=== PATIENT | female | born 1950 | race Caucasian/White ===

== ENCOUNTER → 2018-08-10 | Day surgery (SDC) | payer MEDICARE, BC ==
[2018-08-10] MEDS: Lactated Ringers 1,000 ML IV SCH (16:25)
[2018-08-10] MEDS: Meperidine PF 25 MG/ML Syringe IV ONE (16:40)
[2018-08-10] MEDS: Midazolam 1 MG/ML 2 ML SDV IV ONE (16:40)
[2018-08-10 17:26] VITALS: BP 130/59
--- NOTE | 2018-08-11 09:36 | OR ---
DATE OF OPERATION: 08/10/2018 PREOPERATIVE DIAGNOSIS: FOREIGN BODY, ESOPHAGUS. POSTOPERATIVE DIAGNOSIS: 1. FOREIGN BODY OF ESOPHAGUS, RESOLVED. 2. LARGE HIATAL HERNIA WITH GASTROESOPHAGEAL REFLUX DISEASE. 3. DUODENITIS. SURGEON: Fernie Linares MD PROCEDURE: DIAGNOSTIC AND THERAPEUTIC EGD WITH BIOPSIES X1, BAKARI. ANESTHESIA: Conscious sedation with 2 mg Versed and 25 mg Demerol with continuous O2 sat monitoring and nurse assist. Oxygen sats remained above 90% for the entire procedure. COMPLICATIONS: None. SPECIMEN: 1. Duodenal bulb biopsy x1. 2. BAKARI. FINDINGS: 1. Full-length EGD. 2. Retained food particle, distal esophagus. 3. Large hiatal hernia with spontaneous GERD. No significant esophagitis. 4. Duodenitis, duodenal bulb without ulceration. RECOMMENDATIONS: Patient is instructed to initiate proton pump therapy on a daily basis at this point. She needs to give some consideration to hiatal hernia repair given the chronicity of this problem and the size of the hernia itself. INDICATIONS: Patient's son works in our facility. She has a history of a prior food impaction in her esophagus. She called in noting that and we elected to proceed with a diagnostic and therapeutic EGD. DESCRIPTION OF PROCEDURE: The patient was prepped and draped, placed in the left lateral decubitus position. With head of the bed elevated, a lubricated Olympus gastroscope was inserted over a bit, advanced to cricopharyngeus area, and with patient swallow, easily intubated into the esophagus. We were able to proceed down through the esophagus without any difficulty. There may be a slightly smaller caliber esophagus, but for the most part, scope passed simply. At its most distal portion, the patient had a large food, vegetable matter noted to be spinach impacted in the distal esophagus. This was easily pushed through to the stomach without any problem. The Z-line was crisp around 34 cm. There was a large hiatal hernia present. There was no obvious esophagitis, stricturing, ulceration or Nuno's changes of the esophagus. Scope was advanced into the stomach through the pylorus into the second portion of the duodenum. This was benign. The duodenal bulb had some duodenitis. We will do a biopsy of that. The scope was brought back into the stomach and retroflexed. The upper fundus and cardia showed a large hernia but otherwise no gross abnormalities. Very difficult to see the upper fundus and cardia because patient still has food in her stomach. The distal portion of the fundus and antrum could be visualized and no gross abnormalities were seen. Biopsy was taken for BAKARI of the unaffected portion of the antrum. Air was then suctioned from the stomach and the scope were removed without complication. DALE/SHENG /[id number]
== END ==
LOC: CC.SDS 15:57
PROVIDERS: ATTEND Family Medicine
DX: T18.108A Unspecified foreign body in esophagus causing other injury, initial encounter (principal); K44.9 Diaphragmatic hernia without obstruction or gangrene; K21.9 Gastro-esophageal reflux disease without esophagitis; K29.80 Duodenitis without bleeding; E78.5 Hyperlipidemia, unspecified; I10 Essential (primary) hypertension; F17.210 Nicotine dependence, cigarettes, uncomplicated; J44.1 Chronic obstructive pulmonary disease with (acute) exacerbation; Z79.51 Long term (current) use of inhaled steroids; Z79.1 Long term (current) use of non-steroidal anti-inflammatories (NSAID); Z79.899 Other long term (current) drug therapy; Z88.6 Allergy status to analgesic agent; Z88.8 Allergy status to other drugs, medicaments and biological substances
CPT/HCPCS: 87081; J2175; J2250; J7120

== ENCOUNTER → 2018-12-11 | Day surgery (SDC) | payer MEDICARE, BC ==
[~2018-12-11] MED LIST: Lidocaine 1% 20 ML MDV ONE
[2018-12-11 10:27] VITALS: BP 155/76; PULSE 76
== END ==
LOC: CC.SDS 06:07
PROVIDERS: ATTEND Family Medicine
DX: I83.12 Varicose veins of left lower extremity with inflammation (principal); I83.812 Varicose veins of left lower extremity with pain
CPT/HCPCS: A4216

== ENCOUNTER → 2018-12-15 | Day surgery (SDC) | payer MEDICARE, BC ==
[2018-12-15 12:40] VITALS: BP 140/60; PULSE 78
== END ==
LOC: CC.SDS 10:31
PROVIDERS: ATTEND Family Medicine
DX: I83.811 Varicose veins of right lower extremity with pain (principal)
CPT/HCPCS: 36475; A4216

== ENCOUNTER 2020-07-19 10:02 | Emergency (ER) | payer MEDICARE, BC ==
[2020-07-19] MEDS ORDERED: diphenhydrAMINE 50 MG/ML SDV IM ONE (10:27)
[2020-07-19] MEDS ORDERED: methylPREDNISolone Sodium Succinate 125 MG/2 ML SDV IVPUSH SCH (10:30)
[2020-07-19 10:52] VITALS: BP 200/108; PULSE 94
--- NOTE | 2020-07-19 11:39 | EDM.PDOC ---
ED HPI GENERAL MEDICAL PROBLEM - General Chief Complaint: Allergic Reaction Stated Complaint: SWALLOWING ISSUES Time Seen by Provider: 07/19/20 10:20 Source of Information: Reports: Patient History Limitations: Reports: No Limitations - History of Present Illness INITIAL COMMENTS - FREE TEXT/NARRATIVE: Genesis is a 70 year old female who presents to ER with complaints of hives on her right side that is getting worse. States first noted mild discomfort/itch to her right side/hip and buttocks. Does feel they are spreading now. Got concerned due to the large amount of swelling to the left side of her neck and was worried about her airway. Denies wheezing or shortness of breath. Does admit that she has had enlargement of the gland on the left side of her neck but nothing this significant. No fevers. Patient unaware of any new soaps, lotions or foods. Did take pepto bismal as she has been having heartburn issues. Has taken it one time in the past and it didn't cause any symptoms at that time. Onset: Today, Gradual Duration: Hour(s):, Getting Worse Location: Reports: Chest, Back Quality: Reports: Other (itching) Severity: Mild Associated Symptoms: Denies: Confusion, Chest Pain, Cough, Fever/Chills, Loss of Appetite, Nausea/Vomiting, Shortness of Breath - Related Data Allergies Allergy/AdvReac Type Severity Reaction Status Date / Time acetaminophen [From Sine-Aid] Allergy Headache Verified 07/19/20 11:00 pseudoephedrine HCl Allergy Headache Verified 07/19/20 11:00 [From Sine-Aid] Home Meds: Home Meds Famotidine [Pepcid AC] 1 - 2 tab PO DAILY PRN 05/09/16 [History] Multivitamin [Multivitamins] 1 tab PO DAILY PRN 05/09/16 [History] Aspirin [Halfprin] 81 mg PO DAILY 08/10/18 [History] Budesonide/Formoterol [Symbicort 160-4.5 MCG] 1 dose INH BID 08/10/18 [History] Lisinopril/Hydrochlorothiazide [Lisinopril-Hctz 20-25 mg Tab] 1 tab PO DAILY 08/10/18 [History] Simvastatin 20 mg PO BEDTIME 08/10/18 [History] predniSONE [Prednisone] 20 mg PO DAILY #8 tablet 07/19/20 [Rx] Past Medical History Cardiovascular History: Reports: High Cholesterol, Hypertension Respiratory History: Reports: COPD Gastrointestinal History: Reports: Chronic Constipation Oncologic (Cancer) History: Reports: Breast - Past Surgical History GI Surgical History: Reports: Cholecystectomy Oncologic Surgical History: Reports: Lumpectomy Social & Family History - Caffeine Use Caffeine Use: Reports: Coffee ED ROS ALLERGIC REACTION - Review of Systems Review Of Systems: See Below Constitutional: Denies: Fever, Chills, Malaise, Weakness, Fatigue HEENT: Reports: Throat Swelling. Denies: Ear Pain, Rhinitis, Throat Pain Respiratory: Denies: Shortness of Breath, Cough Cardiovascular: Denies: Chest Pain, Edema, Lightheadedness Endocrine: Denies: Fatigue GI/Abdominal: Reports: Other (heartburn). Denies: Abdominal Pain, Nausea, Vomiting : Reports: No Symptoms Musculoskeletal: Reports: No Symptoms Skin: Reports: Urticaria Neurological: Reports: No Symptoms ED EXAM GENERAL NO PERIP PULSE - Physical Exam Exam: See Below Exam Limited By: No Limitations General Appearance: Alert, WD/WN, No Apparent Distress Ears: Normal External Exam, Normal TMs Nose: Normal Inspection, Normal Mucosa, No Blood Throat/Mouth: Normal Inspection, Normal Oropharynx Head: Normocephalic Neck: Normal Inspection, Supple, Non-Tender Respiratory/Chest: No Respiratory Distress, Lungs Clear, Normal Breath Sounds Cardiovascular: Regular Rate, Rhythm GI/Abdominal: Normal Bowel Sounds, Soft, Non-Tender Extremities: Normal Inspection, No Pedal Edema Neurological: Alert, Oriented Skin Exam: Other (patient has diffuse hives to right side, back and upper back. ) Course - Vital Signs Last Recorded V/S: Last Vital Signs Temp 97.2 F 07/19/20 10:20 Pulse 94 07/19/20 10:20 Resp 24 H 07/19/20 10:20 BP 200/108 H 07/19/20 10:20 Pulse Ox 93 L 07/19/20 10:20 - Orders/Labs/Meds Meds: Medications Discontinued Medications Generic Name Dose Route Start Last Admin Trade Name Freq PRN Reason Stop Dose Admin Diphenhydramine HCl 50 mg 07/19/20 10:27 07/19/20 10:42 Diphenhydramine 50 Mg/Ml Sdv IM 07/19/20 10:28 50 mg ONETIME ONE Administration Methylprednisolone Sodium Succinate 125 mg 07/19/20 10:30 07/19/20 10:38 Methylprednisolone Sodium Succinate 125 Mg/2 Ml Sdv IVPUSH 125 mg Q24H GILLES Administration - Re-Assessments/Exams Free Text/Narrative Re-Assessment/Exam: 07/19/20 Vital signs are stable. Given Solu Medrol and Benadryl. Did start to get some relief prior to discharge. Will discharge home on prednisone and benadryl. Departure - Departure Time of Disposition: 11:37 Disposition: Home, Self-Care 01 Condition: Fair Clinical Impression: Urticaria - Discharge Information *PRESCRIPTION DRUG MONITORING PROGRAM REVIEWED*: No *COPY OF PRESCRIPTION DRUG MONITORING REPORT IN PATIENT MELINDA: No Prescriptions: predniSONE [Prednisone] 20 mg PO DAILY #8 tablet Instructions: Hives Referrals: PCP,None [Primary Care Provider] - Forms: ED Department Discharge Additional Instructions: 1. Push fluids 2. Benadryl 50 mg every 6 hours x4 doses 3. Prednisone 20 mg~ 2 tabs daily for 4 days 4. Need to follow up on swelling of neck and obtain CT scan 5. Follow up if persisting concerns. Sepsis Event Note (ED) - Evaluation Sepsis Screening Result: No Definite Risk - Focused Exam Vital Signs: Vital Signs Temp Pulse Resp BP Pulse Ox 07/19/20 10:20 97.2 F 94 24 H 200/108 H 93 L
== END 2020-07-19 11:50 | disposition home or self-care (01) ==
LOC: CC.ED 10:02
DX: L50.9 Urticaria, unspecified (principal); E78.00 Pure hypercholesterolemia, unspecified; I10 Essential (primary) hypertension; J44.9 Chronic obstructive pulmonary disease, unspecified; Z79.82 Long term (current) use of aspirin; Z79.899 Other long term (current) drug therapy; Z88.6 Allergy status to analgesic agent; Z88.8 Allergy status to other drugs, medicaments and biological substances
CPT/HCPCS: 96372; 96374; 99282-25; 99283; J1200; J2930

== ENCOUNTER 2022-11-14 04:18 | Emergency (ER) | payer MEDICARE, BC ==
[2022-11-14] MEDS ORDERED: diphenhydrAMINE 50 MG/ML SDV IVPUSH ONE (04:42)
[2022-11-14] MEDS ORDERED: Dexamethasone 4 MG/ML SDV IVPUSH ONE (04:42)
[2022-11-14] MEDS ORDERED: Famotidine 20 MG/2 ML SDV IVPUSH ONE (04:42)
[2022-11-14] MEDS ORDERED: Dexamethasone 4 MG/ML SDV ONE (04:57)
[2022-11-14 05:02] LABS: BASOPHILS ABSOLUTE AUTO 0.05 10^3/uL (0.00-0.50); BASOPHILS PERCENT AUTO 0.6 % (0-1); EOSINOPHILS ABSOLUTE AUTO 0.24 10^3/uL (0.00-1.50); HEMATOCRIT 41.6 % (37.0-47.0); HEMOGLOBIN 13.4 g/dL (12.0-16.0); IMMATURE GRAN ABSOLUTE AUTO 0.02 10^3/uL (0.00-0.49); IMMATURE GRAN PERCENT AUTO 0.3 % (0.0-4.9); LYMPHOCYTES PERCENT AUTO 11.3 % (24-44); MEAN CORPUSCULAR HGB CONC 32.2 g/dL (32.0-36.0); MEAN CORPUSCULAR VOLUME 93.1 fL (83.0-97.0); MONOCYTES ABSOLUTE AUTO 0.74 10^3/uL (0.00-1.50); MONOCYTES PERCENT AUTO 9.3 % (0-10); NEUTROPHILS ABSOLUTE AUTO 6.02 x10^3/uL (1.80-8.00); NEUTROPHILS PERCENT AUTO 75.5 % (41-71); PLATELET COUNT,PLT 234 10^3/uL (150-400); RED BLOOD CELL COUNT 4.47 x10^6/uL (4.00-5.50)
[2022-11-14 05:25] LABS: ALBUMIN 3.3 g/dL (3.4-5.0); BILIRUBIN TOTAL 0.9 mg/dL (0.0-1.0); C-REACTIVE PROTEIN 1.78 mg/dL (<=0.30); CALCIUM 9.2 mg/dL (8.4-10.1); CREATININE 0.9 mg/dL (0.6-1.0); EST CRCL DRUG DOSING (CG) 59.05 mL/min; POTASSIUM,K 4.2 mEq/L (3.5-5.0); PROTEIN TOTAL,TP 7.5 g/dL (6.4-8.2)
[2022-11-14 10:08] VITALS: BP 132/74; PULSE 72
== END 2022-11-14 10:07 | disposition home or self-care (01) ==
LOC: CC.ED 04:18
DX: K71.9 Toxic liver disease, unspecified (principal); L50.9 Urticaria, unspecified; F17.210 Nicotine dependence, cigarettes, uncomplicated; I10 Essential (primary) hypertension; E78.00 Pure hypercholesterolemia, unspecified; Z88.6 Allergy status to analgesic agent; Z88.8 Allergy status to other drugs, medicaments and biological substances
CPT/HCPCS: 36415; 80053; 83735; 85025; 86140; 96374; 96375; 99283-25; 99284; J1100; J1200; J3490

== ENCOUNTER 2024-10-29 06:49 | Day surgery (SDC) | payer MEDICARE, BC ==
[2024-10-29] MEDS: Lactated Ringers 1,000 ML IV SCH (07:05)
[2024-10-29 08:44] VITALS: BP 139/63; PULSE 62
== END 2024-10-29 08:50 | disposition home or self-care (01) ==
LOC: CC.SDS 06:49
PROVIDERS: ATTEND Family Medicine
DX: Z12.11 Encounter for screening for malignant neoplasm of colon (principal); D12.2 Benign neoplasm of ascending colon; K57.30 Diverticulosis of large intestine without perforation or abscess without bleeding; I10 Essential (primary) hypertension; F17.200 Nicotine dependence, unspecified, uncomplicated; Z79.899 Other long term (current) drug therapy
CPT/HCPCS: 00811; 88305; 99100; J7120